=== PATIENT | male | born 1965 | race Caucasian/White ===

== ENCOUNTER 2021-03-19 00:22 | Emergency (ER) | payer MEDICAID ==
[~2021-03-19] VITALS: Ht 175.3 cm; Wt 83.9 kg
--- NOTE | 2021-03-19 00:25 | NUR ---
Pt bibself c/o rt knee swelling that goes down to calf since saturday. Pt [id number] breathing evenly and unlabored. Pt states that he "scratched his knee and on saturday he started taking keflex, but the swelling and redness is worse." Pt attached to monitor and pox. Pt given blanket and call light within reach
[2021-03-19] MEDS ORDERED: SULF1TAB48 PO (01:40)
--- NOTE | 2021-03-19 01:45 | NUR ---
Patient discharged to home in stable condition. Written and verbal after care instructions given. Patient verbalizes understanding of instruction. pt ambulatory with a steady gait
[2021-03-19] MEDS ORDERED: SULFAMETH/TRIMETH 800/160 MG 1 UDTAB TABLET ONE (01:47)
[2021-03-19 01:52] VITALS: BP 110/69
[2021-03-19] MEDS ORDERED: SULFAMETH/TRIMETH 800/160 MG 1 UDTAB TABLET PO ONE (02:00)
== END 2021-03-19 01:45 | disposition home or self-care (01) ==
LOC: ER 00:37
DX: L03.115 Cellulitis of right lower limb (principal); R22.41 Localized swelling, mass and lump, right lower limb

== ENCOUNTER 2021-04-03 09:40 | Emergency (ER) | payer MEDICAID ==
[~2021-04-03] VITALS: Ht 175.3 cm; Wt 81.6 kg
[~2021-04-03 09:40] MED LIST: SULF1TAB48 PO
[2021-04-03 09:44] VITALS: BP 131/71
--- NOTE | 2021-04-03 10:34 | NUR ---
Patient discharged to home in stable condition. Written and verbal after care instructions given. Patient verbalizes understanding of instruction.
== END 2021-04-03 10:35 | disposition home or self-care (01) ==
LOC: ER 09:42
DX: S63.693A Other sprain of left middle finger, initial encounter (principal); S63.695A Other sprain of left ring finger, initial encounter; Z79.899 Other long term (current) drug therapy; W01.0XXA Fall on same level from slipping, tripping and stumbling without subsequent striking against object, initial encounter; Y93.67 Activity, basketball; Y92.89 Other specified places as the place of occurrence of the external cause; Y99.8 Other external cause status
CPT/HCPCS: 73130-TC